=== PATIENT | male | born 2000 | race African-American/Black ===

== ENCOUNTER 2024-02-24 16:17 | Emergency (ER) | payer MEDICAID ==
[~2024-02-24] VITALS: Ht 175.3 cm; Wt 65.8 kg
[2024-02-24] MEDS ORDERED: LOPE2CAP40 PO (17:16)
[2024-02-24 18:16] VITALS: BP 121/74; TEMP 98; O2SAT 99
== END 2024-02-24 18:16 | disposition home or self-care (01) ==
LOC: ER 16:38
DX: R19.7 Diarrhea, unspecified (principal)